=== PATIENT | female | born 1935 | race Caucasian/White ===

== ENCOUNTER 2019-07-07 18:10 | Inpatient (IN) | payer OTHER ==
[~2019-07-07] VITALS: Ht 160 cm; Wt 51.7 kg
[2019-07-07] MEDS ORDERED: SODIUM CHLORIDE 0.9% 1000ML BAG (SEPSIS BOLUS) IV ONE (20:30)
[2019-07-07 20:59] LABS: EOSINOPHILS % 1.8 % (0.0-5.0); HEMATOCRIT. 34.3 % (36.0-48.0); HEMOGLOBIN. 11.5 g/dL (12.0-16.0); LYMPHOCYTES % 26.4 % (20.0-50.0); MEAN CORPUSCULAR HEMOGLOBIN 30.9 pg (28.0-32.0); MEAN CORPUSCULAR VOLUME 92.3 fL (81.0-99.0); MEAN PLATELET VOLUME 7.1 fl (7.4-10.4); MONOCYTES % 9.4 % (2.0-8.0); NEUTROPHILS % 61.4 % (40.0-76.0); PLATELET 308 x1000/uL (130-400); RED BLOOD CELL COUNT 3.71 mill/uL (4.2-5.4); RED CELL DISTRIBUTION WIDTH 13.4 % (11.6-14.6)
[2019-07-07 21:07] LABS: CHLORIDE 115 mEq/L (98-107)
[2019-07-07 21:08] LABS: PROTHROMBIN TIME 10.3 sec (9.6-11.0)
[2019-07-07 22:07] LABS: CLARITY URINE CLEAR (CLEAR); COLOR URINE YELLOW (YELLOW); KETONES URINE NEGATIVE (NEGATIVE); LEUKOCYTE ESTERASE URINE 2+ (NEGATIVE); NITRITE URINE NEGATIVE (NEGATIVE); OCCULT BLOOD URINE NEGATIVE (NEGATIVE); PROTEIN URINE NEGATIVE (NEGATIVE); SPECIFIC GRAVITY URINE 1.015 (1.005-1.030); UROBILINOGEN URINE 0.2 E.U./dL (0.2-1.0)
[2019-07-07] MEDS ORDERED: CEFTRIAXONE 1 G PREMIX 50 ML IV NR (22:15)
[2019-07-07] MEDS ORDERED: ACETAMINOPHEN 325MG TABLET PO PRN (23:45)
[2019-07-07] MEDS ORDERED: ONDANSETRON HCL 4MG/2ML INJ IV PRN (23:45)
[2019-07-08] VITALS (7 sets, daily range): BP systolic 137–158; BP diastolic 47–72
[2019-07-08] MEDS: SODIUM CHLORIDE 0.9% 1,000 ML IV SCH ×2 (01:56→09:06)
[2019-07-08] MEDS: HEPARIN 5000 UNITS/ML VIAL SUBCUT SCH ×2 (08:55→21:24)
[2019-07-08 09:14] LABS: CHLORIDE 117 mEq/L (98-107)
[2019-07-08 10:13] LABS: BASOPHILS % 1.1 % (0.0-2.0); EOSINOPHILS % 3.5 % (0.0-5.0); HEMATOCRIT. 31.2 % (36.0-48.0); HEMOGLOBIN. 10.6 g/dL (12.0-16.0); LYMPHOCYTES % 30.7 % (20.0-50.0); MEAN CORPUSCULAR HEMOGLOBIN 31.2 pg (28.0-32.0); MEAN CORPUSCULAR VOLUME 91.7 fL (81.0-99.0); MONOCYTES % 14.8 % (2.0-8.0); NEUTROPHILS % 49.9 % (40.0-76.0); RED CELL DISTRIBUTION WIDTH 13.4 % (11.6-14.6)
[2019-07-08 15:49] LABS: MEAN PLATELET VOLUME 8.9 fl (7.4-10.4)
[2019-07-08 15:51] LABS: PLATELET 259 x1000/uL (130-400)
[2019-07-08] MEDS ORDERED: CEFTRIAXONE 1 G PREMIX 50 ML IV SCH ×2 (21:00→22:00)
[2019-07-09] VITALS: BP 168/55
[2019-07-09] MEDS: SODIUM CHLORIDE 0.9% 1,000 ML IV SCH (03:16)
[2019-07-09 04:00] VITALS: BP 158/72
[2019-07-09 08:00] VITALS: BP 120/76
[2019-07-09] MEDS: HEPARIN 5000 UNITS/ML VIAL SUBCUT SCH (09:11)
[2019-07-09 12:00] VITALS: BP 124/64
[2019-07-09 13:00] VITALS: BP_SYST 124; BP_SYST 139; BP_DIAS 64; BP_DIAS 80
[2019-07-09 16:00] VITALS: BP 139/80
[2019-07-10] MEDS ORDERED: MULTIVITAMINS,THER W-MINERALS TABLET PO SCH (09:00)
== END 2019-07-09 19:43 | disposition home or self-care (01) | DRG 640 ==
LOC: ER 18:10 → 7WST 23:04 → EDBEDREQSVC 23:08 → EDBEDREQTM 23:08 → EDBEDREQ 23:08 → ENRESERV 23:27
PROVIDERS: ADMIT Family Medicine Adult Medicine; ATTEND Family Medicine Adult Medicine
DX: E86.0 Dehydration (principal); G92 Toxic encephalopathy; N39.0 Urinary tract infection, site not specified; F03.90 Unspecified dementia, unspecified severity, without behavioral disturbance, psychotic disturbance, mood disturbance, and anxiety; Z86.73 Personal history of transient ischemic attack (TIA), and cerebral infarction without residual deficits
CPT/HCPCS: 36415; 71045; 80053; 81003; 83605; 84145; 84484; 85025; 87804; 93005; 97162; 99285; A6261; J0696; J1644; J7030; A4315